=== PATIENT | male | born 1960 | race Caucasian/White ===

== ENCOUNTER 2017-06-13 07:38 | Emergency (ER) | payer OTHER ==
[~2017-06-13] VITALS: Ht 172.7 cm; Wt 90.7 kg
[~2017-06-13 07:38] MED LIST: CLONAZEPAM0.5 M3 PO; CLONIDINE HCL0.1 MG PO; CYANOCOBAL1000 MCG/2 IM; FLOMAX(MONOGRA0.4 MG PO; FLOMAX0.4 M1 PO; GABAPENTIN400 M2 PO; LITHIUM8 MEQ/5 M1 PO; MELOXICAM7.5 M1; PERCOCET 325 MG1 TA2 PO; PROPRANOLOL HCL20 M1 PO; QUETIAPINE FUMA50 M1 PO; TOPROL XL 25MG25 MG PO; VALIUM5 M1 PO; VRAYLAR1.5 MG PO
--- NOTE | 2017-06-13 07:53 | ED GI/GU/ABDOMINAL COMPLAINT ---
History of Present Illness General Chief Complaint: Abdominal Pain/Flank Pain Stated Complaint: LL ABDOMINAL PAIN Source: patient, old records Exam Limitations: no limitations Vital Signs & Intake/Output Vital Signs & Intake/Output Vital Signs Date Time Temp Pulse Resp B/P B/P Pulse O2 O2 Flow FiO2 Mean Ox Delivery Rate 06/13 1045 98.3 80 18 132/74 99 Room Air 06/13 0906 99 Room Air 06/13 0743 98.0 82 15 143/88 96 Room Air Room Air Allergies Coded Allergies: No Known Allergies (06/13/17) Reconcile Medications Allopurinol 300 MG TABLET 1 TAB PO DAILY GOUT (Reported) Amoxicillin/Potassium Clav (Augmentin 875-125 Tablet) 875 MG-125 MG TABLET 1 TAB PO BID DIVERTICULITIS Cariprazine HCl (Vraylar) 1.5 MG CAPSULE 1 CAP PO QPM MENTAL HEALTH (Reported ) Clonazepam 0.5 MG TAB.RAPDIS 1 TAB PO BID PRN ANXIETY (Reported) Gabapentin 400 MG CAPSULE 1 CAP PO Q3H MENTAL HEALTH (Reported) Hydrocodone/Acetaminophen (Hawthorne 5-325 Tablet) 5 MG-325 MG TABLET 1-2 TAB PO Q4-6 PRN PRN PAIN Maurice Citrate (Maurice) 8 MEQ/5 ML SOLUTION 10 ML PO BID MENTAL HEALTH ( Reported) Olanzapine 5 MG TABLET 1 TAB PO QPM MENTAL HEALTH (Reported) Propranolol HCl 20 MG TABLET 1 TAB PO TID ANXIETY (Reported) Quetiapine Fumarate 50 MG TABLET 1.5 TAB PO QPM MENTAL HEALTH (Reported) Solifenacin Succinate (Vesicare) 5 MG TABLET 1 TAB PO DAILY UNKNOWN (Reported ) Tamsulosin HCl (Flomax) 0.4 MG CAP.ER.24H 1 CAP PO DAILY KIDNEY STONES/ PROSTATE (Reported) Vortioxetine Hydrobromide (Brintellix) 20 MG TABLET 1 TAB PO DAILY UNKNOWN ( Reported) Triage Note: PT TO ED FOR C/C OF LLQ ABD PAIN THAT STARTED THREE HOURS AGO. PT WAS DIAGNOSED WITH DIVERTICULITIS 3 WEEKS AGO AND PUT ON ANTIBIOTICS FOR 10 DAYS. NOW PT HAS PAIN IN LLQ, WITH NAUSEA. DENIES DIARRHEA. AFEBRILE IN TRIAGE. Triage Nurses Notes Reviewed? yes Onset: Gradual Duration: hour(s): (3) Timing: recent history Quality/Severity: sharpness, severe Severity Numbers: 10 Location: left lower quadrant Radiation: no radiation Activities at Onset: none Prior Abdominal Problems: similar symptoms Past Sexual History: Unobtainable at this time Sexually Active: No No Modifying Factors: none Modifying Factors: Improves With: rest. Worsens With: palpation. HPI: Patient is a 57-year-old male with history of depression, anxiety, diverticulitis and kidney stones presenting to the emergency department with chief complaint of left lower quadrant pain 10 out of 10 and nonradiating that started approximately 3 hours prior to arrival. Pain is sharp and stabbing. Positive nausea without vomiting. Patient reports that he was diagnosed with diverticulitis approximately 3 weeks ago via CAT scan that his primary doctor set up and it was positive for diverticulitis and patient was started on antibiotics. Finish antibiotics about 10 days ago and was feeling fine. Patient does admit that he has had intermittent diarrhea since finishing the antibiotics. Denies blood in the stool. No fevers or chills. Denies any urinary frequency urgency or dysuria. (Conchis Carolina) Past History Travel History Traveled to [place] past 21 day No Medical History Any Pertinent Medical History? 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 No (Conchis Carolina) Review of Systems Review of Systems Constitutional: Reports: no symptoms. Comments Review of systems: See HPI, All other systems negative. Constitutional, no chills fever or weight loss HEENT: No visual changes no sore throat no congestion Cardiovascular: No chest pain ,palpitation Skin, no jaundice no rashes Respiratory: No dyspnea cough sputum or hemoptysis GI: no vomiting : No dysuria No hematuria Muscle skeletal: no back pain, no neck pain, Neurologic: No numbness no confusion NO HEADACHES Psych: No stress anxiety or depression,. Heme/endocrine: No bruising no bleeding no polyuria or polydipsia Immunology: No splenectomy or history of AIDS (Conchis Carolina) Physical Exam Physical Exam General Appearance: alert, awake, comfortable Gastrointestinal: normal bowel sounds, soft, tenderness Comments: Well-developed well-nourished person in no acute distress HEENT: Pupils equally round and reactive to light and accommodation. Nose is atraumatic. External auditory canal and Tympanic membranes clear. Pharynx normal. No swelling or edema. Neck: NORMAL INSPECTION Back: Nontender, no CVA tenderness. Cardiovascular: Regular rate and rhythms no murmurs rubs or gallops, normal JVP Respiratory: Chest nontender. No respiratory distress.breath sounds clear to auscultation bilaterally Abdomen: Soft, TENDER TO PALPATION IN LLQ with gaurding, mild rebound tenderness , nondistended, no appreciable organomegaly. Normal bowel sounds. No ascites Extremity: No edema Neuro: Alert oriented x3 Skin: No appreciable rash on exposed skin, skin is warm and dry. Psych: Mood and affect is normal, memory and judgment is normal. Core Measures ACS in differential dx? No Sepsis Present: No Sepsis Focused Exam Completed? No (Conchis Carolina) Progress Differential Diagnosis: diverticulitis, gastritis, ischemic bowel, ureterolithiasis, urinary retention, UTI/pyelo Plan of Care: Orders Procedure Date/time Status URINALYSIS 06/13 0752 Complete LIPASE 06/13 0752 Complete LACTIC ACID 06/13 0752 Complete COMPREHENSIVE METABOLIC PANEL 06/13 0752 Complete CBC WITHOUT DIFFERENTIAL 06/13 0752 Complete Laboratory Tests 06/13/17 1052: Lactic Acid Cancelled 06/13/17 1000: Urine Color YEL, Urine Clarity CLEAR, Urine pH 6.5, Ur Specific [place] 1.015, Urine Protein NEG, Urine Ketones NEG, Urine Nitrite NEG, Urine Bilirubin NEG, Urine Urobilinogen 0.2, Ur Leukocyte Esterase NEG, Ur Microscopic EXAM NOT REQUIRED, Urine Hemoglobin NEG, Urine Glucose NEG 06/13/17 0822: Anion Gap 11, Estimated GFR > 60, BUN/Creatinine Ratio 15.0, Glucose 92, Lactic Acid 2.0, Calcium 9.4, Total Bilirubin 0.5, AST 19, ALT 23, Alkaline Phosphatase 68, Total Protein 6.0 L, Albumin 3.8, Globulin 2.2, Albumin/Globulin Ratio 1.7, Lipase 153, CBC w Diff NO MAN DIFF REQ, RBC 4.47 L, MCV 92.7, MCH 31.6 H, MCHC 34.1, RDW 12.9, MPV 7.4, Gran % 73.5, Lymphocytes % 13.1 L, Monocytes % 8.5, Eosinophils % 4.6, Basophils % 0.3, Absolute Granulocytes 6.7 H, Absolute Lymphocytes 1.2, Absolute Monocytes 0.8 H, Absolute Eosinophils 0.4, Absolute Basophils 0 06/13/2017 8:27:18 AM patient is well-appearing, vitals are stable, patient afebrile, normotensive and not tachycardic. Patient does have significant tenderness to palpation of the left lower quadrant with rebound and guarding. pt was recently treated for diverticulitis. Concern for potential perforation versus abscess formation or incomplete resolution of diverticulitis. We will assess patient with labs, CbC, CMP, lactic acid. Patient will be decay with IV acetaminophen, IV Zofran for nausea and IV fluids. No peritoneal signs. 06/13/2017 10:36:51 AM this is a perforation or abscess. Patient afebrile, no elevation in white blood cell count. No left shift. Lactic acid is within normal range. Patient does have diverticulitis on CT scan. We will switch antibiotics to Augmentin. Since patient is so well-appearing and reliable for outpatient treatment patient will be discharged home, follow-up with GI. Educated on signs and symptoms to return immediately to the emergency department. d/w dr daley and he agrees with plan. Diagnostic Imaging: Viewed by Me: CT Scan. Discussed w/RAD: CT Scan. Radiology Impression: PATIENT: LAVELL GARCIA PRESENT AGE: 57 PATIENT ACCOUNT NO: [id number] : 56 LOCATION: [facility] ORDERING PHYSICIAN: Conchis DEL VALLE SERVICE DATE: 06/13/17 EXAM TYPE: CAT - CT ABD & PELVIS W IV CONTRAST EXAMINATION: CT ABDOMEN AND PELVIS WITH CONTRAST CLINICAL INFORMATION: Rule out diverticulitis/abscess. COMPARISON: CT scan of the abdomen and pelvis 01/15/2015. TECHNIQUE: Multidetector volumetric imaging was performed of the abdomen and pelvis following IV administration of 55 mL of Optiray 320 intravenous contrast. Sagittal and coronal reformatted images were obtained on the technologist's workstation. DLP: 520.47 mGy-cm FINDINGS: LUNG BASES: There is minimal bibasilar subsegmental atelectasis. A fat-containing left [place] diaphragmatic hernia and a small sliding hiatal hernia are noted. No pleural or pericardial effusion. LIVER, GALLBLADDER, AND BILIARY TREE: Liver attenuation is homogeneous with the exception of a well marginated benign- appearing cystic lesion within the left lobe the liver that remain essentially unchanged from prior imaging. There is no intrahepatic or extrahepatic biliary ductal dilatation. The gallbladder is unremarkable with no evidence of radiopaque gallstones, gallbladder wall thickening, or obvious pericholecystic inflammatory changes. PANCREAS: Unremarkable. SPLEEN: Unremarkable. ADRENAL GLANDS: Unremarkable. KIDNEYS AND URETERS: Kidneys demonstrate symmetric corticomedullary enhancement characteristics. There are a few nonobstructive calculi within the calyces of both kidneys. The largest calculus within a lower pole of the left kidney measures 3 mm in diameter. The largest calculus within a lower pelvic calyces of the right kidney measures 3 mm in maximal diameter. There is no discrete renal parenchymal mass. No hydronephrosis. No abnormal nephric inflammation or collection. There is no mass or calcification along the expected course of the right or left ureters. BLADDER: Unremarkable. GASTROINTESTINAL TRACT: There is abnormal inflammatory stranding surround and impacted diverticulum at the junction of the descending and sigmoid colon best illustrated on axial image 479 of 728 series 3. Grossly no evidence of free intraperitoneal air or fluid to suggest perforation. Numerous additional noninflamed diverticula are visualized primarily throughout the sigmoid colon. The appendix is normal. The stomach and small bowel are unremarkable. ABDOMINAL WALL: No significant hernia is appreciated. LYMPH NODES: No pathologically enlarged mediastinal or retroperitoneal lymph nodes. VASCULAR: There are a few scattered vascular calcifications within the abdominal aorta. The inferior vena cava is unremarkable. PELVIC VISCERA: A few nonspecific prostatic calcifications are noted. No abnormal perirectal or presacral inflammation. OSSEOUS STRUCTURES: Of note there is advanced facet degenerative changes at the levels of L4-L5 and to a lesser degree at L5-S1. No evidence of acute fracture. No worrisome lytic or blastic osseous lesion. IMPRESSION: Findings consistent with acute diverticulitis at the junction of the descending and sigmoid colon. No evidence of perforation or abscess. Otherwise stable examination including numerous nonobstructive calculi within both kidneys. DICTATED BY: Ricardo Lee MD DATE/TIME DICTATED:06/13/17952 PARIMUTUEL CASHIER:MARIUSZ DATE/TIME TRANSCRIBED:06/13/17952 CONFIDENTIAL, DO NOT COPY WITHOUT APPROPRIATE AUTHORIZATION. <Electronically signed in Other Vendor System> SIGNED BY: Ricardo Lee MD 06/13/17 1005 Initial ED EKG: none (Conchis Carolina) Departure Departure Time of Disposition: 1034 Disposition: HOME OR SELF CARE Condition: Stable Clinical Impression Primary Impression: Diverticulitis Referrals: Lauren LORENZANA,Vinicius Saenz (PCP/Family) Ashu Chery MD Additional Instructions: Follow-up with gastroenterology in the next 3-4 weeks. Increase fluids. Take Augmentin as prescribed. Take Hawthorne as prescribed for pain. Return for any worsening symptoms, if he develop any fevers or concerns. Departure Forms: Customer Survey General Discharge Information Prescriptions: Current Visit Scripts Amoxicillin/Potassium Clav (Augmentin 875-125 Tablet) 1 TAB PO BID #20 TAB Hydrocodone/Acetaminophen (Hawthorne 5-325 Tablet) 1-2 TAB PO Q4-6 PRN PRN PAIN #10 TAB (Conchis Carolina) PA/RINK RAT Co-Sign Statement Statement: ED Attending supervision documentation- [] I saw and evaluated the patient. I have also reviewed all the pertinent lab results and diagnostic results. I agree with the findings and the plan of care as documented in the PA's/RINK RAT's documentation. [X] I have reviewed the ED Record and agree with the PA's/RINK RAT's documentation. [] Additions or exceptions (if any) to the PAs/RINK RAT's note and plan are summarized below: [] (Sera LORENZANA,Hilario Canales)
[2017-06-13 08:32] LABS: ABSOLUTE BASOPHIL COUNT 0 /CUMM (0.0-0.2); ABSOLUTE EOSINOPHIL COUNT 0.4 /CUMM (0.0-0.7); ABSOLUTE GRANULOCYTE CT 6.7 /CUMM (1.4-6.5); ABSOLUTE LYMPH COUNT 1.2 /CUMM (1.2-3.4); ABSOLUTE MONOCYTE COUNT 0.8 /CUMM (0.10-0.60); BASOPHIL % 0.3 % (0.0-2.0); EOSINOPHIL % 4.6 % (0-5); GRANULOCYTE % 73.5 % (42.2-75.2); HEMATOCRIT 41.5 % (42-52); MEAN CORPUSCULAR HGB 31.6 PG (27.0-31.0); MEAN CORPUSCULAR HGB CONC 34.1 G/DL (33.0-37.0); MEAN CORPUSCULAR VOLUME 92.7 FL (80.0-94.0); MEAN PLATELET VOLUME 7.4 FL (7.4-10.4); PLATELET COUNT 250 /CUMM (130-400); RBC DISTRIBUTION WIDTH 12.9 % (11.5-14.5); RED BLOOD CELL CT 4.47 /CUMM (4.70-6.10); WHITE BLOOD CELL COUNT 9.2 /CUMM (4.8-10.8)
[2017-06-13] MEDS ORDERED: OLANZAPINE5 M2 PO (10:00)
[2017-06-13] MEDS ORDERED: BRINTELLIX20 M1 PO (10:01)
[2017-06-13] MEDS ORDERED: ALLOPURINOL300 M1 PO (10:01)
[2017-06-13] MEDS ORDERED: VESICARE5 M1 PO (10:01)
--- NOTE | 2017-06-13 10:05 | CT SCAN REPORT ---
EXAMINATION: CT ABDOMEN AND PELVIS WITH CONTRAST CLINICAL INFORMATION: Rule out diverticulitis/abscess. COMPARISON: CT scan of the abdomen and pelvis 01/15/2015. TECHNIQUE: Multidetector volumetric imaging was performed of the abdomen and pelvis following IV administration of 55 mL of Optiray 320 intravenous contrast. Sagittal and coronal reformatted images were obtained on the technologist's workstation. DLP: 520.47 mGy-cm FINDINGS: LUNG BASES: There is minimal bibasilar subsegmental atelectasis. A fat-containing left [place] diaphragmatic hernia and a small sliding hiatal hernia are noted. No pleural or pericardial effusion. LIVER, GALLBLADDER, AND BILIARY TREE: Liver attenuation is homogeneous with the exception of a well marginated benign-appearing cystic lesion within the left lobe the liver that remain essentially unchanged from prior imaging. There is no intrahepatic or extrahepatic biliary ductal dilatation. The gallbladder is unremarkable with no evidence of radiopaque gallstones, gallbladder wall thickening, or obvious pericholecystic inflammatory changes. PANCREAS: Unremarkable. SPLEEN: Unremarkable. ADRENAL GLANDS: Unremarkable. KIDNEYS AND URETERS: Kidneys demonstrate symmetric corticomedullary enhancement characteristics. There are a few nonobstructive calculi within the calyces of both kidneys. The largest calculus within a lower pole of the left kidney measures 3 mm in diameter. The largest calculus within a lower pelvic calyces of the right kidney measures 3 mm in maximal diameter. There is no discrete renal parenchymal mass. No hydronephrosis. No abnormal nephric inflammation or collection. There is no mass or calcification along the expected course of the right or left ureters. BLADDER: Unremarkable. GASTROINTESTINAL TRACT: There is abnormal inflammatory stranding surround and impacted diverticulum at the junction of the descending and sigmoid colon best illustrated on axial image 479 of 728 series 3. Grossly no evidence of free intraperitoneal air or fluid to suggest perforation. Numerous additional noninflamed diverticula are visualized primarily throughout the sigmoid colon. The appendix is normal. The stomach and small bowel are unremarkable. ABDOMINAL WALL: No significant hernia is appreciated. LYMPH NODES: No pathologically enlarged mediastinal or retroperitoneal lymph nodes. VASCULAR: There are a few scattered vascular calcifications within the abdominal aorta. The inferior vena cava is unremarkable. PELVIC VISCERA: A few nonspecific prostatic calcifications are noted. No abnormal perirectal or presacral inflammation. OSSEOUS STRUCTURES: Of note there is advanced facet degenerative changes at the levels of L4-L5 and to a lesser degree at L5-S1. No evidence of acute fracture. No worrisome lytic or blastic osseous lesion. IMPRESSION: Findings consistent with acute diverticulitis at the junction of the descending and sigmoid colon. No evidence of perforation or abscess. Otherwise stable examination including numerous nonobstructive calculi within both kidneys.
[2017-06-13] MEDS ORDERED: AUGMENTIN 875-1 EACH PO (10:35)
[2017-06-13] MEDS ORDERED: NORCO 5-325 TA1 EACH PO (10:35)
[2017-06-13 10:45] VITALS: BP 132/74
== END 2017-06-13 10:48 ==
LOC: ERH 07:38
PROVIDERS: Physician Assistant
DX: K57.92 Diverticulitis of intestine, part unspecified, without perforation or abscess without bleeding (principal)
CPT/HCPCS: 74177; 81003; 96374; 96375; J0131; J2405